=== PATIENT | female | born 1950 | race Caucasian/White ===

== ENCOUNTER 2018-04-14 13:00 | Day surgery (SDC) | payer MEDICARE, OTHER ==
[~2018-04-14 13:00] MED LIST: Buffered Lidocaine 0.9% SYRIN* 5 ML/SYR SYRINGE INTRADERM ONE
[2018-04-14] MEDS ORDERED: Scopolamine 1.5 mg* PATCH ONE (13:11)
[2018-04-14] MEDS ORDERED: ceFAZolin 2 GM PREMIX (*) 2 GM/50 ML BAG IVPB ONE (13:11)
[2018-04-14] MEDS ORDERED: Dexamethasone IV* 4 MG/ML 1 ML (4 MG) ONE (13:12)
[2018-04-14] MEDS ORDERED: Ondansetron ODT TAB* 4 MG ONE (13:45)
[2018-04-14] MEDS ORDERED: Bupivacaine 0.25% SDV* 30 ML ONE (13:55)
[2018-04-14] MEDS ORDERED: Propofol* 10 MG/ML 20 ML BTL IV PUSH ONE ×2 (14:03→14:23)
[2018-04-14] MEDS ORDERED: Lidocaine 2% PF * 5 ML VIAL ONE (14:11)
[2018-04-14] MEDS ORDERED: Naloxone* 0.4 MG/ML 1 ML VIAL IV PRN (14:44)
[2018-04-14 14:50] VITALS: BP 121/64
== END 2018-04-14 15:03 | disposition home or self-care (01) ==
LOC: OREAST 13:00
PROVIDERS: ATTEND Plastic Surgery
DX: G56.01 Carpal tunnel syndrome, right upper limb (principal); M19.90 Unspecified osteoarthritis, unspecified site; E78.5 Hyperlipidemia, unspecified; M54.5 Low back pain
CPT/HCPCS: A9270-GY; J0690; J1100; J2704

== ENCOUNTER → 2019-05-04 11:56 | Day surgery (SDC) | payer MEDICARE, OTHER ==
[~2019-05-04 11:56] MED LIST changes: +Acetaminophen TAB* 325 MG PO PRN; -Buffered Lidocaine 0.9% SYRIN* 5 ML/SYR SYRINGE INTRADERM ONE; +Buffered Lidocaine 1% SYRIN* 1 ML/SYRINGE INTRADERM ONE; +Bupivacaine 0.25% SDV PF* 10 ML VIAL INJ ONE; +Dexamethasone IV* 4 MG/ML 1 ML (4 MG) IV SLOW PU ONE; +Dexamethasone IV* 4 MG/ML 1 ML (4 MG) ONE; +Famotidine IV* 10 MG/ML 2 ML (20 mg) IV ONE; +Famotidine IV* 10 MG/ML 2 ML (20 mg) ONE; +Ketorolac INJ* 30 MG/ML 1 ML VIAL IV PRN; +Lactated Ringers 1000 ML Bag* 1,000 ML IV SCH; +Lidocaine 2% PF * 5 ML VIAL ONE; +Naloxone* 0.4 MG/ML 1 ML VIAL IV PRN; +Ondansetron INJ* 2 MG/ML VIAL ONE; +Propofol* 10 MG/ML 20 ML BTL ONE; +Scopolamine 1.5 mg* PATCH ONE; +Scopolamine 1.5 mg* PATCH TRANSDERM ONE; +Scopolamine PATCH Remove* 1 NOTE MISC PATCH OFF ONE; +ceFAZolin 2 GM PREMIX in ORs 2 GM/50 ML BAG ONE
[2019-05-04 15:19] VITALS: BP 137/77
== END | disposition home or self-care (01) ==
LOC: OR 11:56
PROVIDERS: ATTEND Plastic Surgery
DX: M65.311 Trigger thumb, right thumb (principal)
CPT/HCPCS: A9270-GY; J0690; J1100; J2405; J2704; J3490

== ENCOUNTER → 2019-07-25 08:38 | Day surgery (SDC) | payer MEDICARE, OTHER ==
[~2019-07-25 08:38] MED LIST changes: -Acetaminophen TAB* 325 MG PO PRN; +Bupivacaine 0.5%* 50 ML MDV VIAL ONE; -Dexamethasone IV* 4 MG/ML 1 ML (4 MG) IV SLOW PU ONE; -Famotidine IV* 10 MG/ML 2 ML (20 mg) IV ONE; -Famotidine IV* 10 MG/ML 2 ML (20 mg) ONE; +Glycopyrrolate IV* 0.2 MG/ML 1 ML VIAL ONE; +KETAMINE HCL* 50 MG/ML 10 ML VIAL ONE; -Ketorolac INJ* 30 MG/ML 1 ML VIAL IV PRN; +Lidocaine 1% w EPI 1:100,000* MDV 20 ML VIAL ONE; -Naloxone* 0.4 MG/ML 1 ML VIAL IV PRN; +Propofol* 500 MG/50 ML BTL ONE; -Scopolamine PATCH Remove* 1 NOTE MISC PATCH OFF ONE; -ceFAZolin 2 GM PREMIX in ORs 2 GM/50 ML BAG ONE; +ceFAZolin 2 GM in NS PREMIX(*) 2 GM/100 ML BAG IVPB ONE
[2019-07-25 15:56] VITALS: BP 128/63
== END | disposition home or self-care (01) ==
LOC: OR 08:38
PROVIDERS: ATTEND Plastic Surgery
DX: Z41.1 Encounter for cosmetic surgery (principal); M81.0 Age-related osteoporosis without current pathological fracture; M19.90 Unspecified osteoarthritis, unspecified site; J30.89 Other allergic rhinitis; E78.5 Hyperlipidemia, unspecified
CPT/HCPCS: A9270-GY; J0690; J1100; J2405; J2704; J3490

== ENCOUNTER → 2019-09-05 06:12 | Day surgery (SDC) | payer MEDICARE, OTHER ==
[~2019-09-05 06:12] MED LIST changes: +Acetaminophen TAB* 325 MG ONE; +Acetaminophen TAB* 325 MG PO PRN; +Artificial Tear OPHTH.OINT* 3.5 GM ONE; +BSS OPTH.SOL* BTL ONE; +Bacitracin OINTMENT* 0.5% 0.5 oz TUBE ONE; -Bupivacaine 0.25% SDV PF* 10 ML VIAL INJ ONE; -Bupivacaine 0.5%* 50 ML MDV VIAL ONE; +Famotidine IV* 10 MG/ML 2 ML (20 mg) IV ONE; +Famotidine IV* 10 MG/ML 2 ML (20 mg) ONE; -Lidocaine 2% PF * 5 ML VIAL ONE; +Naloxone* 0.4 MG/ML 1 ML VIAL IV PRN; -Propofol* 500 MG/50 ML BTL ONE; +Tetracaine 0.5% OPTH.SOL 4 ML* 1 DROP BTL ONE; +ceFAZolin 2 GM PREMIX in ORs 2 GM/50 ML BAG ONE; -ceFAZolin 2 GM in NS PREMIX(*) 2 GM/100 ML BAG IVPB ONE; +fentaNYL* 50 MCG/ML 2 ML VIAL (100 MCG VIAL) ONE
[2019-09-05 11:44] VITALS: BP 131/70
== END | disposition home or self-care (01) ==
LOC: OR 06:12
PROVIDERS: ATTEND Plastic Surgery
DX: H02.835 Dermatochalasis of left lower eyelid (principal); H02.834 Dermatochalasis of left upper eyelid; H02.831 Dermatochalasis of right upper eyelid; H02.832 Dermatochalasis of right lower eyelid; Z41.1 Encounter for cosmetic surgery; E78.5 Hyperlipidemia, unspecified; M19.90 Unspecified osteoarthritis, unspecified site; M81.0 Age-related osteoporosis without current pathological fracture; M54.9 Dorsalgia, unspecified; J30.2 Other seasonal allergic rhinitis
CPT/HCPCS: 88300; A9270-GY; J0690; J1100; J2405; J2704; J3010